=== PATIENT | male | born 1975 | race Caucasian/White ===

== ENCOUNTER 2018-08-21 13:46 | Inpatient (IN) | payer MEDICAID ==
[~2018-08-21] VITALS: Ht 175.3 cm; Wt 65.0 kg
[~2018-08-21 13:46] MED LIST: MORP100C17 PO; NORCO10T PO
[2018-08-21] MEDS ORDERED: vancomycin/NS 1 GM ADD-VANTAGE 250 ML IV ONE (14:15)
[2018-08-21] MEDS ORDERED: fentaNYL/PF 50MCG/1 ML 2ML syringe IV ONE ×2 (14:15→14:45)
[2018-08-21] MEDS ORDERED: normal saline 1000ML IV soln IV ONE (14:15)
[2018-08-21 14:41] LABS: BASOPHILS % (AUTO) 0 % (0-1); EOSINOPHILS # (AUTO) 0.3 X10'3 (0-0.9); HEMATOCRIT 41.5 % (42.0-52.0); HEMOGLOBIN 13.6 g/dl (14.0-17.9); LYMPHOCYTES # (AUTO) 0.6 X10'3 (1.1-4.8); LYMPHOCYTES % (AUTO) 3.5 % (21-51); MEAN CORPUSCULAR HEMOGLOBIN 30.8 PG (27.0-31.0); MEAN CORPUSCULAR HGB CONC 32.9 % (33.0-36.5); MEAN CORPUSCULAR VOLUME 93.5 FL (78-98); MEAN PLATELET VOLUME 8.7 FL (7.4-10.4); MONOCYTES # (AUTO) 0.6 X10'3 (0-0.9); MONOCYTES % (AUTO) 3.5 % (2-12); NEUTROPHILS # (AUTO) 14.9 X10'3 (1.8-7.7); PLATELET COUNT 224 X10'3 (140-440); RED BLOOD COUNT 4.43 X10'6 (4.70-6.10); RED CELL DISTRIBUTION WIDTH 13.9 % (11.5-14.5); WHITE BLOOD COUNT 16.4 X10'3 (4.5-11.0)
[2018-08-21] MEDS ORDERED: iohexol 350MG/ML 100ml bottle IV ONE (14:44)
[2018-08-21 14:54] LABS: INR 1.1 INR; PARTIAL THROMBOPLASTIN TIME 29 SECONDS (22-32); PROTHROMBIN TIME 11.3 SECONDS (9.0-12.0)
[2018-08-21] MEDS ORDERED: GABA800T2 PO (15:03)
[2018-08-21] MEDS ORDERED: AMIT25TA10 PO (15:04)
[2018-08-21] MEDS ORDERED: iohexol 300mg/ml 100ml inj. ONE (15:05)
[2018-08-21 15:09] LABS: ALANINE AMINOTRANSFERASE 22 U/L (12-78); ALBUMIN/GLOBULIN RATIO 0.9 (1.1-1.5); ALKALINE PHOSPHATASE 27 IU/L (46-116); ANION GAP 6 (8-16); ASPARTATE AMINO TRANSFERASE 15 U/L (10-37); BILIRUBIN,TOTAL 0.2 MG/DL (0.1-1.0); BLOOD UREA NITROGEN 11 MG/DL (7-18); BUN/CREATININE RATIO 9.8 (5.4-32.0); CALCIUM 8.6 MG/DL (8.5-10.1); CHLORIDE 101 MMOL/L (99-107); CREATININE 1.12 MG/DL (0.60-1.10); GLUCOSE 152 MG/DL (70-104); POTASSIUM 3.6 MMOL/L (3.5-5.1); SODIUM 137 MMOL/L (135-145); TOTAL CARBON DIOXIDE 29.8 MMOL/L (24-32); TOTAL PROTEIN 6.4 G/DL (6.4-8.2); eGFR 72 ML/MIN
[2018-08-21] MEDS ORDERED: MESSAGE TO PHARMACY PO ONE (15:40)
[2018-08-21] MEDS ORDERED: magnesium 4gm in 100ml NS 100 ML IV PRN (15:40)
[2018-08-21] MEDS ORDERED: potassium Cl 20 mEq SR tablet PO PRN ×2 (15:40)
[2018-08-21] MEDS ORDERED: insulin Lispro (HumaLOG) vial - multi-dose SQ SCH (15:40)
[2018-08-21] MEDS ORDERED: glucagon, human recombinant 1mg kit SUBCUT PRN (15:40)
[2018-08-21] MEDS ORDERED: dextrose 50%-water 50ml dispensing syringe IV PRN ×2 (15:40)
[2018-08-21] MEDS ORDERED: magnesium hydroxide 30ml (MOM) UD suspension PO PRN (15:40)
[2018-08-21] MEDS ORDERED: potassium Cl 40MEQ/NS 500ml 500 ML IV PRN ×2 (15:40)
[2018-08-21] MEDS ORDERED: dextrose ORAL solution 15 GM/59 ML bottle PO PRN ×2 (15:40)
[2018-08-21] MEDS ORDERED: morphine 2 MG/ML inj. syringe IV PRN (15:40)
[2018-08-21] MEDS ORDERED: mag hydrox/Alum hydrox/simeth 30ml oral suspension PO PRN (15:40)
[2018-08-21] MEDS ORDERED: magnesium 1gm/100ml D5W IVPB 100 ML IV PRN (15:40)
[2018-08-21] MEDS ORDERED: magnesium Cl slow-release 64mg tablet PO PRN (15:40)
[2018-08-21] MEDS ORDERED: ondansetron/PF 4mg/2ml inj IV PRN (15:40)
[2018-08-21] MEDS ORDERED: acetaminophen 325mg tablet PO PRN (15:40)
[2018-08-21 15:55] LABS: TOTAL CELLS COUNTED 100
[2018-08-21 15:56] LABS: PLATELET ESTIMATE NORMAL
[2018-08-21] MEDS ORDERED: vancomycin/NS 1 GM ADD-VANTAGE 250 ML IV SCH (16:00)
[2018-08-21] MEDS ORDERED: morphine 4 MG/ML inj SYRINge IV ONE (16:20)
[2018-08-21 16:23] LABS: HEMOGLOBIN A1C 5.4 % (4.5-6.2)
[2018-08-21 18:00] VITALS: BP 141/99
[2018-08-21] MEDS: HYDROcodone/acetaminophen 5mg/325mg tablet PO PRN (19:12)
[2018-08-21] MEDS: gabapentin 400mg capsule PO SCH (19:39)
[2018-08-21] MEDS: amitriptyline 25mg tablet PO SCH (20:37)
[2018-08-21] MEDS ORDERED: insulin glargine (Lantus) pen - multi-dose SQ SCH (21:00)
[2018-08-21 22:00] VITALS: BP 129/71
[2018-08-21] MEDS: morphine 2 MG/ML inj. syringe IV PRN (23:01)
[2018-08-21] MEDS: normal saline 1000ml 1,000 ML IV SCH (23:03)
[2018-08-22] MEDS: morphine 2 MG/ML inj. syringe IV PRN ×7 (01:25→19:53)
[2018-08-22] MEDS: oxymetazoline 15 ML nasal spray NS PRN ×2 (01:37→20:55)
[2018-08-22] MEDS ORDERED: vancomycin/NS 1 GM ADD-VANTAGE 250 ML IV SCH (04:00)
[2018-08-22 05:17] LABS: CLARITY,URINE CLEAR (Clear); COLOR,URINE YELLOW (Yellow); GLUCOSE, URINE NEGATIVE (Neg); KETONES,URINE NEGATIVE (Neg); LEUKOCYTE ESTERASE ,URINE NEGATIVE (Neg); NITRITES, URINE NEGATIVE (Neg); OCCULT BLOOD,URINE NEGATIVE (Neg); PH,URINE 6.5 (4.8-8.0); PROTEIN,URINE TRACE mg/dl (Neg); UROBILINOGEN,URINE 0.2 E.U/dL (0.2-1.0)
[2018-08-22 05:29] LABS: UA COLLECTION TYPE NON-SPECIFIED
[2018-08-22 05:30] LABS: BACTERIA,URINE NONE SEEN /HPF (Neg); MUCUS STRANDS NONE SEEN /LPF (Neg); RBC,URINE NONE SEEN /HPF (0-2); SQUAMOUS EPITHELIAL CELL,UR NONE SEEN /LPF (FEW); WBC,URINE NONE SEEN /HPF (0-4)
[2018-08-22 06:00] VITALS: BP 110/65
[2018-08-22] MEDS: K and/or MAG REPLACEMENT MC SCH (08:00)
[2018-08-22] MEDS: gabapentin 400mg capsule PO SCH ×2 (08:11→19:44)
[2018-08-22] MEDS: enoxaparin 40mg/0.4ml syringe SUBCUT SCH (08:11)
[2018-08-22 09:22] LABS: BASOPHILS % (AUTO) 0.4 % (0-1); EOSINOPHILS # (AUTO) 0.5 X10'3 (0-0.9); EOSINOPHILS % (AUTO) 5.2 % (0-6); HEMATOCRIT 33.8 % (42.0-52.0); MEAN CORPUSCULAR HEMOGLOBIN 30.4 PG (27.0-31.0); MEAN CORPUSCULAR HGB CONC 32.5 % (33.0-36.5); MEAN CORPUSCULAR VOLUME 93.3 FL (78-98); MEAN PLATELET VOLUME 9.1 FL (7.4-10.4); MONOCYTES # (AUTO) 0.6 X10'3 (0-0.9); MONOCYTES % (AUTO) 6.9 % (2-12); NEUTROPHILS % (AUTO) 76.5 % (42-75); PLATELET COUNT 168 X10'3 (140-440); RED BLOOD COUNT 3.62 X10'6 (4.70-6.10); RED CELL DISTRIBUTION WIDTH 14.2 % (11.5-14.5); WHITE BLOOD COUNT 9.2 X10'3 (4.5-11.0)
[2018-08-22 09:41] LABS: ALANINE AMINOTRANSFERASE 25 U/L (12-78); ALBUMIN 2.1 G/DL (3.4-5.0); ALBUMIN/GLOBULIN RATIO 0.7 (1.1-1.5); ALKALINE PHOSPHATASE 21 IU/L (46-116); ANION GAP 7 (8-16); ASPARTATE AMINO TRANSFERASE 18 U/L (10-37); BILIRUBIN,TOTAL 0.1 MG/DL (0.1-1.0); BLOOD UREA NITROGEN 9 MG/DL (7-18); CALCIUM 7.9 MG/DL (8.5-10.1); CHLORIDE 104 MMOL/L (99-107); GLUCOSE 185 MG/DL (70-104); MAGNESIUM 1.5 MG/DL (1.5-2.4); POTASSIUM 3.5 MMOL/L (3.5-5.1); SODIUM 137 MMOL/L (135-145); TOTAL CARBON DIOXIDE 26.3 MMOL/L (24-32); eGFR > 90 ML/MIN
[2018-08-22 10:00] VITALS: BP 116/67
[2018-08-22] MEDS: vancomycin/NS 1 GM ADD-VANTAGE 250 ML IV SCH ×2 (12:41→19:44)
[2018-08-22] MEDS: normal saline 1000ml 1,000 ML IV SCH (12:41)
[2018-08-22 18:00] VITALS: BP 115/76
[2018-08-22] MEDS: famotidine 20mg tablet PO SCH (19:44)
[2018-08-22] MEDS: lactobacillus rhamnosus 10,000 MMU CELLS/CAPSULE PO SCH (19:44)
[2018-08-22] MEDS: amitriptyline 25mg tablet PO SCH ×2 (20:47→20:56)
[2018-08-22] MEDS: mupirocin 2% ointment 22GM TP SCH (20:47)
[2018-08-22 22:00] VITALS: BP_SYST 113; BP_SYST 13; BP_DIAS 78
[2018-08-23] MEDS ORDERED: VANCOMYCIN LEVEL IV NR (03:30)
[2018-08-23] MEDS: vancomycin/NS 1 GM ADD-VANTAGE 250 ML IV SCH ×3 (04:02→18:51)
[2018-08-23] MEDS: morphine 2 MG/ML inj. syringe IV PRN ×4 (04:03→17:45)
[2018-08-23 04:16] LABS: ALBUMIN 2.1 G/DL (3.4-5.0); ANION GAP 6 (8-16); BLOOD UREA NITROGEN 10 MG/DL (7-18); BUN/CREATININE RATIO 11.9 (5.4-32.0); CALCIUM 8.3 MG/DL (8.5-10.1); CHLORIDE 107 MMOL/L (99-107); CREATININE 0.84 MG/DL (0.60-1.10); GLUCOSE 92 MG/DL (70-104); MAGNESIUM 1.8 MG/DL (1.5-2.4); SODIUM 141 MMOL/L (135-145); TOTAL CARBON DIOXIDE 27.8 MMOL/L (24-32); VANCOMYCIN,TROUGH 15.2 UG/ML (6.0-14.0); eGFR > 90 ML/MIN
[2018-08-23 06:00] VITALS: BP 117/69
[2018-08-23 06:58] LABS: BASOPHILS % (AUTO) 0.2 % (0-1); EOSINOPHILS # (AUTO) 0.4 X10'3 (0-0.9); EOSINOPHILS % (AUTO) 5.1 % (0-6); HEMOGLOBIN 11.1 g/dl (14.0-17.9); LYMPHOCYTES # (AUTO) 1.4 X10'3 (1.1-4.8); LYMPHOCYTES % (AUTO) 17.8 % (21-51); MEAN CORPUSCULAR HEMOGLOBIN 30.9 PG (27.0-31.0); MEAN CORPUSCULAR HGB CONC 32.7 % (33.0-36.5); MEAN CORPUSCULAR VOLUME 94.3 FL (78-98); MONOCYTES # (AUTO) 0.7 X10'3 (0-0.9); MONOCYTES % (AUTO) 8.3 % (2-12); NEUTROPHILS # (AUTO) 5.4 X10'3 (1.8-7.7); NEUTROPHILS % (AUTO) 68.6 % (42-75); PLATELET COUNT 175 X10'3 (140-440); RED BLOOD COUNT 3.61 X10'6 (4.70-6.10); RED CELL DISTRIBUTION WIDTH 14.1 % (11.5-14.5); WHITE BLOOD COUNT 7.9 X10'3 (4.5-11.0)
[2018-08-23] MEDS: lactobacillus rhamnosus 10,000 MMU CELLS/CAPSULE PO SCH ×2 (06:59→18:52)
[2018-08-23] MEDS: enoxaparin 40mg/0.4ml syringe SUBCUT SCH (06:59)
[2018-08-23] MEDS: famotidine 20mg tablet PO SCH ×2 (06:59→18:52)
[2018-08-23] MEDS: gabapentin 400mg capsule PO SCH ×2 (06:59→18:52)
[2018-08-23] MEDS: mupirocin 2% ointment 22GM TP SCH ×2 (07:00→20:00)
[2018-08-23] MEDS: K and/or MAG REPLACEMENT MC SCH (08:00)
[2018-08-23 10:00] VITALS: BP 127/81
[2018-08-23 18:00] VITALS: BP 133/79
[2018-08-23] MEDS: amitriptyline 25mg tablet PO SCH (18:54)
[2018-08-23] MEDS: HYDROcodone/acetaminophen 5mg/325mg tablet PO PRN (18:55)
[2018-08-23 22:06] VITALS: BP 134/87
[2018-08-24] MEDS: HYDROcodone/acetaminophen 5mg/325mg tablet PO PRN (01:19)
[2018-08-24] MEDS: vancomycin/NS 1 GM ADD-VANTAGE 250 ML IV SCH ×3 (04:14→18:12)
[2018-08-24 05:00] VITALS: BP 140/84
[2018-08-24] MEDS: mupirocin 2% ointment 22GM TP SCH ×2 (08:00→20:35)
[2018-08-24] MEDS: K and/or MAG REPLACEMENT MC SCH (08:00)
[2018-08-24 09:07] LABS: BASOPHILS % (AUTO) 0.4 % (0-1); EOSINOPHILS # (AUTO) 0.5 X10'3 (0-0.9); EOSINOPHILS % (AUTO) 5.2 % (0-6); HEMATOCRIT 40.9 % (42.0-52.0); HEMOGLOBIN 13.4 g/dl (14.0-17.9); LYMPHOCYTES # (AUTO) 1.3 X10'3 (1.1-4.8); MEAN CORPUSCULAR HEMOGLOBIN 30.8 PG (27.0-31.0); MEAN CORPUSCULAR HGB CONC 32.9 % (33.0-36.5); MEAN CORPUSCULAR VOLUME 93.6 FL (78-98); MEAN PLATELET VOLUME 9.6 FL (7.4-10.4); MONOCYTES # (AUTO) 0.5 X10'3 (0-0.9); MONOCYTES % (AUTO) 5.8 % (2-12); NEUTROPHILS # (AUTO) 6.6 X10'3 (1.8-7.7); NEUTROPHILS % (AUTO) 73.6 % (42-75); PLATELET COUNT 247 X10'3 (140-440); RED BLOOD COUNT 4.37 X10'6 (4.70-6.10); RED CELL DISTRIBUTION WIDTH 14.1 % (11.5-14.5)
[2018-08-24 09:14] LABS: ALBUMIN 2.7 G/DL (3.4-5.0); ANION GAP 9 (8-16); BLOOD UREA NITROGEN 11 MG/DL (7-18); BUN/CREATININE RATIO 11.6 (5.4-32.0); CALCIUM 8.9 MG/DL (8.5-10.1); CHLORIDE 105 MMOL/L (99-107); CREATININE 0.95 MG/DL (0.60-1.10); GLUCOSE 105 MG/DL (70-104); MAGNESIUM 1.9 MG/DL (1.5-2.4); POTASSIUM 3.8 MMOL/L (3.5-5.1); SODIUM 144 MMOL/L (135-145); TOTAL CARBON DIOXIDE 30.2 MMOL/L (24-32); eGFR 87 ML/MIN
[2018-08-24] MEDS: famotidine 20mg tablet PO SCH ×2 (09:42→20:35)
[2018-08-24] MEDS: gabapentin 400mg capsule PO SCH ×2 (09:42→20:35)
[2018-08-24] MEDS: lactobacillus rhamnosus 10,000 MMU CELLS/CAPSULE PO SCH ×2 (09:42→20:35)
[2018-08-24] MEDS: enoxaparin 40mg/0.4ml syringe SUBCUT SCH (09:43)
[2018-08-24 10:00] VITALS: BP 152/98
[2018-08-24 18:00] VITALS: BP 171/78
[2018-08-24] MEDS: morphine 2 MG/ML inj. syringe IV PRN ×3 (18:40→23:46)
[2018-08-24] MEDS: amitriptyline 25mg tablet PO SCH (20:35)
[2018-08-24] MEDS: oxymetazoline 15 ML nasal spray NS PRN (20:36)
[2018-08-24 22:00] VITALS: BP 150/90
[2018-08-25] MEDS: vancomycin/NS 1 GM ADD-VANTAGE 250 ML IV SCH ×2 (04:08→12:29)
[2018-08-25 05:00] VITALS: BP 158/85
[2018-08-25] MEDS: morphine 2 MG/ML inj. syringe IV PRN ×3 (06:29→15:28)
[2018-08-25 06:53] LABS: BASOPHILS % (AUTO) 0.6 % (0-1); EOSINOPHILS # (AUTO) 0.5 X10'3 (0-0.9); EOSINOPHILS % (AUTO) 7.8 % (0-6); HEMATOCRIT 33.1 % (42.0-52.0); HEMOGLOBIN 11.1 g/dl (14.0-17.9); LYMPHOCYTES % (AUTO) 28.4 % (21-51); MEAN CORPUSCULAR HEMOGLOBIN 30.8 PG (27.0-31.0); MEAN CORPUSCULAR HGB CONC 33.4 % (33.0-36.5); MEAN CORPUSCULAR VOLUME 92.2 FL (78-98); MEAN PLATELET VOLUME 8.9 FL (7.4-10.4); MONOCYTES # (AUTO) 0.5 X10'3 (0-0.9); MONOCYTES % (AUTO) 6.6 % (2-12); NEUTROPHILS # (AUTO) 3.9 X10'3 (1.8-7.7); NEUTROPHILS % (AUTO) 56.6 % (42-75); PLATELET COUNT 240 X10'3 (140-440); RED BLOOD COUNT 3.59 X10'6 (4.70-6.10)
[2018-08-25 07:08] LABS: ALBUMIN 2.3 G/DL (3.4-5.0); ANION GAP 8 (8-16); BLOOD UREA NITROGEN 11 MG/DL (7-18); CALCIUM 8.3 MG/DL (8.5-10.1); CHLORIDE 106 MMOL/L (99-107); GLUCOSE 83 MG/DL (70-104); MAGNESIUM 1.7 MG/DL (1.5-2.4); POTASSIUM 3.8 MMOL/L (3.5-5.1); SODIUM 143 MMOL/L (135-145); TOTAL CARBON DIOXIDE 28.6 MMOL/L (24-32); eGFR 82 ML/MIN
[2018-08-25] MEDS: K and/or MAG REPLACEMENT MC SCH (07:11)
[2018-08-25] MEDS: gabapentin 400mg capsule PO SCH (07:27)
[2018-08-25] MEDS: famotidine 20mg tablet PO SCH (07:27)
[2018-08-25] MEDS: lactobacillus rhamnosus 10,000 MMU CELLS/CAPSULE PO SCH (07:27)
[2018-08-25] MEDS: enoxaparin 40mg/0.4ml syringe SUBCUT SCH (07:28)
[2018-08-25] MEDS ORDERED: nicotine 7mg patch - 24hr TD SCH (08:00)
[2018-08-25] MEDS: mupirocin 2% ointment 22GM TP SCH (08:00)
[2018-08-25 10:00] VITALS: BP 134/73
[2018-08-25] MEDS ORDERED: CEPH500C2 PO (13:43)
[2018-08-25] MEDS ORDERED: MUPI22OI30 TP (13:43)
== END 2018-08-25 15:41 | disposition home or self-care (01) | DRG 720 ==
LOC: ER 13:46 → ED HOLD 15:37 → EDBEDREQ 17:23 → ORTHO 4S 18:00
PROVIDERS: ADMIT Internal Medicine; ATTEND Family Medicine
PROC: BP2U1ZZ Computerized Tomography (CT Scan) of Left Upper Extremity using Low Osmolar Contrast (ICD-10-PCS; principal; 2018-08-21)
DX: A41.9 Sepsis, unspecified organism (principal); F12.90 Cannabis use, unspecified, uncomplicated; F17.210 Nicotine dependence, cigarettes, uncomplicated; L03.114 Cellulitis of left upper limb; T22.40XA Corrosion of unspecified degree of shoulder and upper limb, except wrist and hand, unspecified site, initial encounter; L29.9 Pruritus, unspecified; F32.9 Major depressive disorder, single episode, unspecified; L23.7 Allergic contact dermatitis due to plants, except food; T54.91XA Toxic effect of unspecified corrosive substance, accidental (unintentional), initial encounter; G89.29 Other chronic pain; M19.90 Unspecified osteoarthritis, unspecified site; Z88.1 Allergy status to other antibiotic agents; Z79.899 Other long term (current) drug therapy; Y93.89 Activity, other specified; Y92.89 Other specified places as the place of occurrence of the external cause; Y99.8 Other external cause status
CPT/HCPCS: 36415; 73201; 80048; 80053; 80202; 81001; 83036; 83605; 83735; 84145; 85025; 85610; 85730; 87040; 87070; 96365; 96375; 96376; 99285; J1650; J1815; J2270; J3010; J3370; J7030; Q9967

== ENCOUNTER 2019-12-31 13:35 | Emergency (ER) | payer MEDICAID, OTHER ==
[~2019-12-31] VITALS: Ht 177.8 cm; Wt 75.0 kg
[~2019-12-31 13:35] MED LIST changes: +AMIT25TA10 PO; +GABA800T11 PO; +HYDR-3972 PO; -MORP100C17 PO; -NORCO10T PO; +PREG100C PO
[2019-12-31] MEDS ORDERED: CLOT30CR24 TOP (17:00)
[2019-12-31 17:22] VITALS: BP 186/106
== END 2019-12-31 17:10 | disposition home or self-care (01) ==
LOC: ER 13:35
DX: B35.3 Tinea pedis (principal); M19.90 Unspecified osteoarthritis, unspecified site; G89.29 Other chronic pain; Z98.890 Other specified postprocedural states; Z88.1 Allergy status to other antibiotic agents; Z79.899 Other long term (current) drug therapy
CPT/HCPCS: 99282

== ENCOUNTER 2020-08-05 10:03 | Emergency (ER) | payer MEDICAID, OTHER ==
[~2020-08-05 10:03] MED LIST changes: +CLOT30CR24 TOP
--- NOTE | 2020-08-05 10:19 | NUR ---
Patient was waiting in lobby and had verbal altercation with another patient. Security called by registration. Pt left with security present.
== END 2020-08-05 11:08 | disposition left against medical advice (07) ==
LOC: ER 10:04
DX: R55 Syncope and collapse (principal); Z53.21 Procedure and treatment not carried out due to patient leaving prior to being seen by health care provider

== ENCOUNTER 2021-03-12 08:25 | Emergency (ER) | payer MEDICAID ==
[~2021-03-12] VITALS: Ht 180.3 cm; Wt 68.2 kg
--- NOTE | 2021-03-12 08:45 | NUR ---
TEMP 96.0 WARM BLANKETS APPLIED.
[2021-03-12 09:15] LABS: BASOPHILS % (AUTO) 0.7 % (0-1); EOSINOPHILS # (AUTO) 0.1 X10'3 (0-0.9); EOSINOPHILS % (AUTO) 3.5 % (0-6); HEMATOCRIT 37.5 % (42.0-52.0); HEMOGLOBIN 12.5 g/dl (14.0-17.9); LYMPHOCYTES # (AUTO) 1.1 X10'3 (1.1-4.8); LYMPHOCYTES % (AUTO) 25.8 % (21-51); MEAN CORPUSCULAR HEMOGLOBIN 31.2 PG (27.0-31.0); MEAN CORPUSCULAR HGB CONC 33.5 g/dL (33.0-36.5); MEAN CORPUSCULAR VOLUME 93.1 FL (78-98); MEAN PLATELET VOLUME 8.9 FL (7.4-10.4); MONOCYTES # (AUTO) 0.3 X10'3 (0-0.9); MONOCYTES % (AUTO) 6.4 % (2-12); NEUTROPHILS # (AUTO) 2.7 X10'3 (1.8-7.7); NEUTROPHILS % (AUTO) 63.6 % (42-75); PLATELET COUNT 245 X10'3 (140-440); RED BLOOD COUNT 4.03 X10'6 (4.70-6.10); RED CELL DISTRIBUTION WIDTH 13.9 % (11.5-14.5); WHITE BLOOD COUNT 4.2 X10'3 (4.5-11.0)
[2021-03-12 09:26] LABS: ALBUMIN 3.5 G/DL (3.4-5.0); ALBUMIN/GLOBULIN RATIO 1.2 (1.1-1.5); ALKALINE PHOSPHATASE 27 IU/L (46-116); ANION GAP 7 (8-16); BILIRUBIN,TOTAL 0.5 MG/DL (0.1-1.0); BLOOD UREA NITROGEN 24 MG/DL (7-18); BUN/CREATININE RATIO 17.4 (5.4-32.0); CALCIUM 8.4 MG/DL (8.5-10.1); CHLORIDE 106 MMOL/L (99-107); CREATININE 1.38 MG/DL (0.60-1.10); GLUCOSE 144 MG/DL (70-104); SODIUM 142 MMOL/L (135-145); TOTAL CARBON DIOXIDE 28.7 MMOL/L (24-32); TOTAL PROTEIN 6.5 G/DL (6.4-8.2); eGFR 56 ML/MIN
[2021-03-12 09:27] LABS: ALANINE AMINOTRANSFERASE 26 U/L (12-78); ASPARTATE AMINO TRANSFERASE 24 U/L (10-37)
--- NOTE | 2021-03-12 10:25 | NUR ---
PATIENT INFORMED URINE SAMPLE NEEDED FOR UA. PATIENT STATES "I WILL GO WHEN I GOTTA PEE". ENCOURAGED TO DRINK WATER AT BEDSIDE, NO SIGNS OF DISTRESS NOTED.
[2021-03-12 10:27] LABS: ETHANOL < 0.010 GM/DL (0.0-0.010)
--- NOTE | 2021-03-12 10:44 | NUR ---
Patient still not providing urine sample stating "I can't pee on demand". Patient encouraged to drink water and at least attempt to use urinal at this time. Patient closes eyes and turns face away. No signs of distress noted.
[2021-03-12 11:30] VITALS: BP 135/89
== END 2021-03-12 12:54 | disposition left against medical advice (07) ==
LOC: ER 08:25
DX: R55 Syncope and collapse (principal); I10 Essential (primary) hypertension; R00.1 Bradycardia, unspecified; G89.29 Other chronic pain; M19.90 Unspecified osteoarthritis, unspecified site; F12.90 Cannabis use, unspecified, uncomplicated; Z88.1 Allergy status to other antibiotic agents; Z79.899 Other long term (current) drug therapy; Z72.89 Other problems related to lifestyle
CPT/HCPCS: 36415; 71045; 80053; 80320; 83880; 84484; 85025; 93005; 99285

== ENCOUNTER 2023-07-15 07:12 | Emergency (ER) | payer MEDICAID ==
[~2023-07-15] VITALS: Ht 177.8 cm; Wt 80.0 kg
[~2023-07-15 07:12] MED LIST changes: -AMIT25TA10 PO; +CLON0.1T2 PO; -CLOT30CR24 TOP; -GABA800T11 PO; -HYDR-3972 PO; +NICO-907 BC; +NO HOME MEDS; +OLAN10TA73 PO; -PREG100C PO; +QUET100T34 PO
[2023-07-15 07:14] VITALS: BP 195/164; PULSE 78; RESP 18; TEMP 97.8; O2SAT 98
[2023-07-15] MEDS ORDERED: ketorolac trometh inj. 60 MG/2 ML VIAL IM ONE (07:50)
[2023-07-15] MEDS ORDERED: ketorolac tromethamine 15mg/ml inj. IM ONE (07:50)
--- NOTE | 2023-07-15 07:50 | NUR ---
GRACE WRAP APPLIED BELOW ANKLE MONITOR FOR COMFORT
[2023-07-15] MEDS ORDERED: IBUP-1986 PO (07:52)
[2023-07-15] MEDS ORDERED: CEPH-585 PO (07:52)
[2023-07-15] MEDS ORDERED: QUET-1 PO (07:52)
== END 2023-07-15 08:43 | disposition home or self-care (01) ==
LOC: ER 07:13
DX: S90.512A Abrasion, left ankle, initial encounter (principal); Z91.041 Radiographic dye allergy status; Z79.899 Other long term (current) drug therapy; X58.XXXA Exposure to other specified factors, initial encounter; Y93.89 Activity, other specified; Y92.89 Other specified places as the place of occurrence of the external cause; Y99.8 Other external cause status
CPT/HCPCS: 96372; 99283; J1885; A6449